=== PATIENT | male | born 1945 | race Caucasian/White ===

== ENCOUNTER 2024-04-28 12:30 | Outpatient (RCR) | payer MEDICARE, BC, SELFPAY | END 2024-04-28 14:30 | LOC: PUL 12:30 | PROVIDERS: PCP Internal Medicine; Referring Provider Internal Medicine Pulmonary Disease; Visit Provider Internal Medicine Pulmonary Disease | DX: J84.89 Other specified interstitial pulmonary diseases (principal) | CPT/HCPCS: G0237; G0238 ==